=== PATIENT | male | born 1960 | race Caucasian/White ===

== ENCOUNTER → 2020-09-03 | Outpatient (CLI) | payer OTHER ==
[~2020-09-03] MED LIST: MULT-658 PO
== END | disposition home or self-care (01) ==
LOC: STAR 08:39
PROVIDERS: ATTEND Orthopaedic Surgery
DX: Z20.828 Contact with and (suspected) exposure to other viral communicable diseases (principal); S83.231A Complex tear of medial meniscus, current injury, right knee, initial encounter; M25.561 Pain in right knee; X58.XXXA Exposure to other specified factors, initial encounter; Y93.89 Activity, other specified; Y92.89 Other specified places as the place of occurrence of the external cause; Y99.8 Other external cause status
CPT/HCPCS: 87635

== ENCOUNTER 2020-09-09 09:01 | Day surgery (SDC) | payer OTHER ==
[~2020-09-09] VITALS: Ht 190.5 cm; Wt 106.2 kg
[2020-09-09] MEDS ORDERED: LIDOCAINE-MPF 1%, 2ML INFIL ONE (10:00)
[2020-09-09] MEDS ORDERED: CHLORHEXIDINE 15 ML UDC MM ONE (10:00)
[2020-09-09] MEDS ORDERED: LACTATED RINGERS 1,000 ML IV SCH (10:00)
[2020-09-09] MEDS ORDERED: LIDOCAINE/PF 1%, 30ML ONE (10:31)
[2020-09-09] MEDS ORDERED: BUPIVACAINE/PF-EPI 0.5% 1:200K ONE (10:31)
[2020-09-09] MEDS ORDERED: FENTANYL PF 250 MCG/5ML ONE (11:26)
[2020-09-09] MEDS ORDERED: MIDAZOLAM 1 MG/ML, 2ML ONE (11:26)
[2020-09-09] MEDS ORDERED: PROPOFOL 10 MG/ML, 20ML ONE (11:28)
[2020-09-09] MEDS ORDERED: CEFAZOLIN 1,000 MG ONE (11:28)
[2020-09-09] MEDS ORDERED: DIPHENHYDRAMINE 50 MG/ML, 1ML IVPush PRN (12:00)
[2020-09-09] MEDS ORDERED: ONDANSETRON 2MG/ML, 2ML IVPush PRN (12:00)
[2020-09-09] MEDS ORDERED: ACETAMINOPHEN 325 MG TABLET PO PRN (12:00)
[2020-09-09] MEDS ORDERED: PROMETHAZINE 25 MG/ML, 1ML IVPush PRN (12:00)
[2020-09-09] MEDS ORDERED: OXYcodone 5 MG/5 ML ORAL.SOL UDC PO PRN (12:00)
[2020-09-09] MEDS ORDERED: MEPERIDINE/PF 25MG/0.5ML IVPush PRN (12:00)
[2020-09-09] MEDS ORDERED: HYDROmorphone 1 MG/ML, 1ML INJ IVPush PRN (12:00)
[2020-09-09] MEDS ORDERED: FENTANYL PF 100 MCG/2ML ONE (12:18)
[2020-09-09] MEDS ORDERED: OXYcodone 5 MG/5 ML ORAL.SOL UDC ONE (12:18)
[2020-09-09] MEDS: FENTANYL PF 100 MCG/2ML IV PRN ×2 (12:26→12:31)
[2020-09-09] MEDS ORDERED: OXYC5CAP2 PO (13:21)
== END 2020-09-09 13:45 | disposition home or self-care (01) ==
LOC: OUT 09:01
PROVIDERS: ATTEND Orthopaedic Surgery
DX: M23.221 Derangement of posterior horn of medial meniscus due to old tear or injury, right knee (principal); M23.300 Other meniscus derangements, unspecified lateral meniscus, right knee; M94.261 Chondromalacia, right knee; Z72.89 Other problems related to lifestyle; Z79.899 Other long term (current) drug therapy; Z82.49 Family history of ischemic heart disease and other diseases of the circulatory system
CPT/HCPCS: 29880; J0690; J2250; J2704; J3010; J7120